=== PATIENT | male | born 2000 | race Caucasian/White ===

== ENCOUNTER 2021-01-20 11:48 | Emergency (ER) | payer BC ==
[2021-01-20] MEDS ORDERED: Lidocaine 1% 10 ML MDV INJECT ONE (12:14)
--- NOTE | 2021-01-20 12:47 | EDM.PDOC ---
ED HPI GENERAL MEDICAL PROBLEM - General Chief Complaint: Laceration Stated Complaint: LT POINTER FINGER LAC Time Seen by Provider: 01/20/21 11:56 Source of Information: Reports: Patient History Limitations: Reports: No Limitations - History of Present Illness INITIAL COMMENTS - FREE TEXT/NARRATIVE: The patient presents with left index finger injury. He was working on a tractor and got his finger crushed. 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 He is right handed and he is not sure if his tetanus is up to date. Onset: Sudden Duration: Minutes: Location: Reports: Upper Extremity, Left (index finger) Quality: Reports: Sharp Severity: Moderate Improves with: Reports: Immobilization Worsens with: Reports: Movement Context: Reports: Trauma (crushed his left inex finger) Associated Symptoms: Reports: No Other Symptoms Left Finger-Index Pain Score (Numeric/FACES): 5 - Related Data Allergies Allergy/AdvReac Type Severity Reaction Status Date / Time No Known Allergies Allergy Verified 01/20/21 11:55 Home Meds: Home Meds cephALEXin [Keflex] 500 mg PO Q6H #40 cap 01/20/21 [Rx] Past Medical History - Past Health History Medical/Surgical History: Denies Medical/Surgical History - Infectious Disease History Infectious Disease History: Reports: None Social & Family History - Tobacco Use Tobacco Use Status *Q: Never Tobacco User Second Hand Smoke Exposure: No - Recreational Drug Use Recreational Drug Use: No ED ROS GENERAL - Review of Systems Review Of Systems: See Below Constitutional: Reports: No Symptoms HEENT: Reports: No Symptoms Respiratory: Reports: No Symptoms Cardiovascular: Reports: No Symptoms Endocrine: Reports: No Symptoms GI/Abdominal: Reports: No Symptoms : Reports: No Symptoms Musculoskeletal: Reports: Other (Left index finger crush injury) ED EXAM, SKIN/RASH Exam: See Below Exam Limited By: No Limitations General Appearance: Alert, No Apparent Distress Ears: Normal External Exam Nose: Normal Inspection Head: Atraumatic, Normocephalic Neck: Normal Inspection Respiratory/Chest: No Respiratory Distress Extremities: Other (Partial amputation of the left index finger with the dorsal aspect of the tip still intact. He still has capillary refill and good sensation to the tip. The laceration goes through the tip of the nail.) ED SKIN PROCEDURES - Laceration/Wound Repair Left Digit - 2nd (Index) Appearance: Subcutaneous, Irregular, Clean Distal NVT: Neuro & Vascular Intact, No Tendon Injury Anesthetic Type: Digital Local Anesthesia - Lidocaine (Xylocaine): 1% Plain Skin Prep: Saline Exploration/Debridement/Repair: Wound Explored, In a Bloodless Field, Explored to Base Closed with: Sutures Lac/Wound length In cm: 4 Suture Size: 4-0 # of Sutures: 5 Suture Type: Nylon, Interrupted, Simple Tetanus Status Addressed: Yes Complications: No - Splinting Left Upper Extremity Splint Site: Index finger Pre-Procedure NV Status: Normal Post-Procedure NV Status: Normal Splint Material: Aluminum-Foam Splint Design: Other (over the tip) Applied & Form Fitted By: Provider Provider Post-Splint Application NV Check: NV Status Normal, Good Position Complications: No Course - Vital Signs Last Recorded V/S: Last Vital Signs Temp 97 F 01/20/21 11:55 Pulse 67 01/20/21 11:55 Resp 16 01/20/21 11:55 BP 136/94 H 01/20/21 11:55 Pulse Ox 100 01/20/21 11:55 - Orders/Labs/Meds Orders: Active Orders 24 hr Category Date Time Status Fingers Second Digit Lt F1 [CR] Stat Exams 01/20/21 12:14 Taken Meds: Medications Discontinued Medications Generic Name Dose Route Start Last Admin Trade Name Herminia PRN Reason Stop Dose Admin Lidocaine HCl 10 ml 01/20/21 12:14 01/20/21 12:33 Lidocaine 1% 10 Ml Mdv INJECT 01/20/21 12:15 10 ml ONETIME ONE Administration - Re-Assessments/Exams Free Text/Narrative Re-Assessment/Exam: 01/20/21 12:47 I ordered an x-ray and it appears he has a fracture of the tip of the distal phalynx. I will suture the wound, splint him and give him some antibiotics. 01/20/21 13:01 I sutured the laceration and had splinted the finger. I will get him on keflex and have him follow up with Dr Cedillo or one of his partners. Departure - Departure Time of Disposition: 13:05 Disposition: Home, Self-Care 01 Condition: Good Clinical Impression: Crushing injury of left index finger Qualifiers: Encounter type: initial encounter Qualified Code(s): S67.191A - Crushing injury of left index finger, initial encounter Laceration of left index finger Qualifiers: Encounter type: initial encounter Damage to nail status: without damage Foreign body presence: without foreign body Qualified Code(s): S61.211A - Laceration without foreign body of left index finger without damage to nail, initial encounter Finger fracture, left Qualifiers: Encounter type: initial encounter Finger: index finger Fracture type: open Phalanx: distal Fracture alignment: nondisplaced Qualified Code(s): S62.661B - Nondisplaced fracture of distal phalanx of left index finger, initial encounter for open fracture - Discharge Information *PRESCRIPTION DRUG MONITORING PROGRAM REVIEWED*: Not Applicable *COPY OF PRESCRIPTION DRUG MONITORING REPORT IN PATIENT JU: Not Applicable Prescriptions: cephALEXin [Keflex] 500 mg PO Q6H #40 cap Referrals: PCP,None [Primary Care Provider] - Kristian Cedillo MD [Physician] - 1 Week Forms: ED Department Discharge Additional Instructions: Soak your finger in warm soapy water 2 times per day and apply antibiotic ointment after. The sutures can be removed in a week. Take the keflex 4 times per day for 10 days. Take tylenol or motrin as needed for pain. Wear the splint to stabilize the fracture and prevent further injury. Sepsis Event Note (ED) - Evaluation Sepsis Screening Result: No Definite Risk - Focused Exam Vital Signs: Vital Signs Temp Pulse Resp BP Pulse Ox 01/20/21 11:55 97 F 67 16 136/94 H 100 - My Orders Last 24 Hours: My Active Orders 01/20/21 12:14 Fingers Second Digit Lt F1 [CR] Stat - Assessment/Plan Last 24 Hours: My Active Orders 01/20/21 12:14 Fingers Second Digit Lt F1 [CR] Stat
--- NOTE | 2021-01-20 13:00 | CR ---
Left second finger: 3 views centered to the left second finger were obtained. Comparison: No prior finger studies available. Mildly displaced fracture is noted within the distal left second finger involving the tuft. Diffuse soft tissue injury is seen in this area. No proximal bony abnormality is appreciated. Impression: 1. Distal left second finger fracture with soft tissue injury. Diagnostic code #3
== END 2021-01-20 13:15 | disposition home or self-care (01) ==
LOC: JD.ED 11:48
DX: S67.191A Crushing injury of left index finger, initial encounter (principal); S62.661B Nondisplaced fracture of distal phalanx of left index finger, initial encounter for open fracture; W23.0XXA Caught, crushed, jammed, or pinched between moving objects, initial encounter
CPT/HCPCS: 12002; 73140-26-F1; 73140-F1; 99283; 99283-25